=== PATIENT | female | born 1980 | race Two or more races ===

== ENCOUNTER 2018-02-08 16:58 | Emergency (ER) | payer OTHER ==
[~2018-02-08] VITALS: Ht 165.1 cm; Wt 68.0 kg
[~2018-02-08 16:58] MED LIST: AMOX1TAB12 PO; ANAPROX275 MG; DEMEBORO OTIC DROPS OTIC; FIORICET 50-321 EACH; FOLIC ACID1 MG; GILTUSS TR TAB1 EACH PO; NAPR500T14 PO; ZITHROMAX TRI-500 MG PO; ZYRTEC10 MG PO
== END 2018-02-08 18:05 | disposition home or self-care (01) ==
LOC: ER 16:58
DX: S61.431A Puncture wound without foreign body of right hand, initial encounter (principal); W46.0XXA Contact with hypodermic needle, initial encounter; Y93.89 Activity, other specified; Y92.69 Other specified industrial and construction area as the place of occurrence of the external cause; Y99.8 Other external cause status

== ENCOUNTER 2018-05-20 15:26 | Outpatient (CLI) | payer OTHER | END 2018-05-20 15:51 | disposition home or self-care (01) | LOC: LAB 15:26 | DX: J11.1 Influenza due to unidentified influenza virus with other respiratory manifestations (principal); J06.9 Acute upper respiratory infection, unspecified ==

== ENCOUNTER 2018-06-08 09:55 | Outpatient (CLI) | payer OTHER | END 2018-06-08 09:59 | disposition home or self-care (01) | LOC: LAB 09:55 | DX: Z11.3 Encounter for screening for infections with a predominantly sexual mode of transmission (principal) ==

== ENCOUNTER 2018-07-12 17:13 | Emergency (ER) | payer OTHER ==
[~2018-07-12] VITALS: Ht 165.1 cm; Wt 63.5 kg
== END 2018-07-12 20:43 | disposition home or self-care (01) ==
LOC: ER 17:13
DX: M62.838 Other muscle spasm (principal); R51 Headache

== ENCOUNTER 2018-09-06 08:37 | Outpatient (CLI) | payer OTHER | END 2018-09-06 08:41 | disposition home or self-care (01) | LOC: LAB 08:37 | DX: E78.49 Other hyperlipidemia (principal); R42 Dizziness and giddiness; R10.2 Pelvic and perineal pain; Z00.00 Encounter for general adult medical examination without abnormal findings ==

== ENCOUNTER → 2019-03-06 14:53 | Outpatient (CLI) | payer OTHER | END | disposition home or self-care (01) | LOC: LAB 14:53 | DX: B01.0 Varicella meningitis (principal); B34.8 Other viral infections of unspecified site ==

== ENCOUNTER 2019-07-04 17:53 | Outpatient (CLI) | payer OTHER | END 2019-07-04 18:00 | disposition home or self-care (01) | LOC: LAB 17:53 | DX: J11.1 Influenza due to unidentified influenza virus with other respiratory manifestations (principal) ==

== ENCOUNTER 2020-01-19 09:00 | Outpatient (CLI) | payer OTHER | END 2020-01-19 18:00 | disposition home or self-care (01) | LOC: PPH VACUNA 09:00 | DX: Z23 Encounter for immunization (principal) ==

== ENCOUNTER → 2020-03-22 06:29 | Outpatient (CLI) | payer OTHER | END | disposition home or self-care (01) | LOC: LAB 06:29 | PROVIDERS: ATTEND Podiatrist Foot Surgery | DX: D68.8 Other specified coagulation defects (principal); D23.70 Other benign neoplasm of skin of unspecified lower limb, including hip ==

== ENCOUNTER 2020-04-09 16:10 | Outpatient (CLI) | payer OTHER | END 2020-04-09 19:00 | disposition home or self-care (01) | LOC: LAB 16:10 | PROVIDERS: ATTEND Podiatrist Foot Surgery | DX: Z03.818 Encounter for observation for suspected exposure to other biological agents ruled out (principal) ==

== ENCOUNTER 2020-04-30 15:56 | Outpatient (CLI) | payer OTHER | END 2020-04-30 15:58 | disposition home or self-care (01) | LOC: LAB 15:56 | PROVIDERS: ATTEND Pediatrics | DX: Z01.84 Encounter for antibody response examination (principal); R50.9 Fever, unspecified ==

== ENCOUNTER 2020-07-17 10:54 | Outpatient (CLI) | payer OTHER | END 2020-07-17 10:59 | disposition home or self-care (01) | LOC: LAB 10:54 | PROVIDERS: ATTEND Obstetrics & Gynecology Gynecology | DX: N95.2 Postmenopausal atrophic vaginitis (principal); E03.8 Other specified hypothyroidism; E55.9 Vitamin D deficiency, unspecified; R73.9 Hyperglycemia, unspecified; E78.89 Other lipoprotein metabolism disorders; D64.89 Other specified anemias; N39.0 Urinary tract infection, site not specified; R19.09 Other intra-abdominal and pelvic swelling, mass and lump; R97.8 Other abnormal tumor markers ==

== ENCOUNTER 2020-07-25 07:39 | Outpatient (CLI) | payer OTHER | END 2020-07-25 07:40 | disposition home or self-care (01) | LOC: TOM 07:39 | PROVIDERS: ATTEND Obstetrics & Gynecology Gynecology | DX: K57.30 Diverticulosis of large intestine without perforation or abscess without bleeding (principal); N20.0 Calculus of kidney; N80.3 Endometriosis of pelvic peritoneum ==

== ENCOUNTER 2021-01-28 08:00 | Outpatient (CLI) | payer OTHER | END 2021-01-28 08:30 | disposition home or self-care (01) | LOC: PPH VACUNA 08:00 | PROVIDERS: ATTEND Emergency Medicine Pediatric Emergency Medicine | DX: Z23 Encounter for immunization (principal) ==

== ENCOUNTER 2021-05-26 10:00 | Outpatient (CLI) | payer OTHER | END 2021-05-26 10:30 | disposition home or self-care (01) | LOC: PPH VACUNA 10:00 | PROVIDERS: ATTEND Emergency Medicine Pediatric Emergency Medicine | DX: Z23 Encounter for immunization (principal) ==

== ENCOUNTER 2021-07-13 12:20 | Emergency (ER) | payer OTHER ==
[~2021-07-13] VITALS: Ht 165.1 cm; Wt 70.3 kg
== END 2021-07-13 15:32 | disposition home or self-care (01) ==
LOC: ER 12:20
DX: S61.247A Puncture wound with foreign body of left little finger without damage to nail, initial encounter (principal); Y93.F9 Activity, other caregiving; Y92.238 Other place in hospital as the place of occurrence of the external cause

== ENCOUNTER 2021-11-11 09:08 | Outpatient (CLI) | payer OTHER | END 2021-11-11 09:10 | disposition home or self-care (01) | LOC: MAMO-SONO 09:08 | PROVIDERS: ATTEND Obstetrics & Gynecology Gynecology | DX: Z12.31 Encounter for screening mammogram for malignant neoplasm of breast (principal); N64.4 Mastodynia ==

== ENCOUNTER 2021-11-11 11:24 | Outpatient (CLI) | payer OTHER | END 2021-11-11 11:25 | disposition home or self-care (01) | LOC: LAB 11:24 | PROVIDERS: ATTEND Obstetrics & Gynecology Gynecology | DX: N95.2 Postmenopausal atrophic vaginitis (principal); E03.9 Hypothyroidism, unspecified; E55.9 Vitamin D deficiency, unspecified; R73.9 Hyperglycemia, unspecified; E78.9 Disorder of lipoprotein metabolism, unspecified; D64.9 Anemia, unspecified; N39.0 Urinary tract infection, site not specified; R19.09 Other intra-abdominal and pelvic swelling, mass and lump ==

== ENCOUNTER 2022-02-06 14:34 | Outpatient (CLI) | payer OTHER | END 2022-02-06 14:35 | disposition home or self-care (01) | LOC: PPH VACUNA 14:34 | PROVIDERS: ATTEND Emergency Medicine Pediatric Emergency Medicine | DX: Z23 Encounter for immunization (principal) ==

== ENCOUNTER 2022-05-20 15:35 | Emergency (ER) | payer OTHER ==
[~2022-05-20] VITALS: Ht 165.1 cm; Wt 71.2 kg
== END 2022-05-20 16:39 | disposition home or self-care (01) ==
LOC: ER 15:35
DX: S69.91XA Unspecified injury of right wrist, hand and finger(s), initial encounter (principal); W45.8XXA Other foreign body or object entering through skin, initial encounter; Y93.F9 Activity, other caregiving; Y92.9 Unspecified place or not applicable

== ENCOUNTER 2022-05-21 16:04 | Outpatient (CLI) | payer OTHER | END 2022-05-21 16:06 | disposition home or self-care (01) | LOC: LAB 16:04 | PROVIDERS: ATTEND General Practice | DX: R05.9 Cough, unspecified (principal); R06.02 Shortness of breath; R50.9 Fever, unspecified; Z20.822 Contact with and (suspected) exposure to COVID-19 ==

== ENCOUNTER → 2022-08-08 09:13 | Outpatient (CLI) | payer OTHER | END | disposition home or self-care (01) | LOC: LAB 09:13 | PROVIDERS: ATTEND Obstetrics & Gynecology Gynecology | DX: N95.2 Postmenopausal atrophic vaginitis (principal); E03.9 Hypothyroidism, unspecified; E55.9 Vitamin D deficiency, unspecified; R73.9 Hyperglycemia, unspecified; E78.9 Disorder of lipoprotein metabolism, unspecified; D64.9 Anemia, unspecified; N39.0 Urinary tract infection, site not specified; R19.09 Other intra-abdominal and pelvic swelling, mass and lump; E28.9 Ovarian dysfunction, unspecified; E28.2 Polycystic ovarian syndrome ==

== ENCOUNTER → 2022-08-13 17:30 | Outpatient (CLI) | payer OTHER | END | disposition home or self-care (01) | LOC: LAB 17:30 | PROVIDERS: ATTEND Pediatrics | DX: Z32.01 Encounter for pregnancy test, result positive (principal) ==

== ENCOUNTER 2022-09-19 09:24 | Outpatient (CLI) | payer OTHER | END 2022-09-19 09:47 | disposition home or self-care (01) | LOC: LAB 09:24 | PROVIDERS: ATTEND Obstetrics & Gynecology Gynecology | DX: E28.2 Polycystic ovarian syndrome (principal); N95.2 Postmenopausal atrophic vaginitis; E03.9 Hypothyroidism, unspecified; E55.9 Vitamin D deficiency, unspecified; R73.9 Hyperglycemia, unspecified; E78.9 Disorder of lipoprotein metabolism, unspecified; D64.9 Anemia, unspecified; N39.9 Disorder of urinary system, unspecified; R19.09 Other intra-abdominal and pelvic swelling, mass and lump ==

== ENCOUNTER 2022-10-23 10:57 | Outpatient (CLI) | payer OTHER | END 2022-10-23 11:01 | disposition home or self-care (01) | LOC: LAB 10:57 | PROVIDERS: ATTEND Obstetrics & Gynecology Gynecology | DX: E28.2 Polycystic ovarian syndrome (principal) ==

== ENCOUNTER → 2022-11-30 12:24 | Outpatient (CLI) | payer OTHER | END | disposition home or self-care (01) | LOC: LAB 12:24 | PROVIDERS: ATTEND Obstetrics & Gynecology Gynecology | DX: N91.4 Secondary oligomenorrhea (principal) ==

== ENCOUNTER → 2022-12-31 | Outpatient (CLI) | payer OTHER | END | disposition home or self-care (01) | LOC: PPH VACUNA | PROVIDERS: ATTEND Emergency Medicine Pediatric Emergency Medicine | DX: Z23 Encounter for immunization (principal) | CPT/HCPCS: 90686; G0008 ==

== ENCOUNTER → 2023-01-06 06:00 | Outpatient (CLI) | payer OTHER | END | disposition home or self-care (01) | LOC: LAB 06:00 | PROVIDERS: ATTEND Obstetrics & Gynecology Gynecology | DX: N91.1 Secondary amenorrhea (principal) ==

== ENCOUNTER → 2023-02-05 16:09 | Outpatient (CLI) | payer OTHER | END | disposition home or self-care (01) | LOC: LAB 16:09 | PROVIDERS: ATTEND Pediatrics | DX: O02.81 Inappropriate change in quantitative human chorionic gonadotropin (hCG) in early pregnancy (principal) ==

== ENCOUNTER 2023-02-19 10:19 | Outpatient (CLI) | payer OTHER | END 2023-02-19 10:24 | disposition home or self-care (01) | LOC: LAB 10:19 | PROVIDERS: ATTEND Obstetrics & Gynecology Gynecology | DX: N91.1 Secondary amenorrhea (principal); Z88.2 Allergy status to sulfonamides; Z88.1 Allergy status to other antibiotic agents ==

== ENCOUNTER 2023-07-13 09:55 | Outpatient (CLI) | payer OTHER | END 2023-07-13 09:56 | disposition home or self-care (01) | LOC: LAB 09:55 | PROVIDERS: ATTEND Preventive Medicine Occupational Medicine | DX: U07.1 COVID-19 (principal) ==

== ENCOUNTER 2023-07-29 08:00 | Outpatient (CLI) | payer OTHER ==
[2023-07-29 09:33] LABS: HEMOGLOBIN 12.5 g/dL (12.0-15.00); MEAN CELL VOLUME 92.3 fL (80.00-100.00); MEAN CORPUSCULAR HGB CONC 34.6 g/dl (32.0-36.0); PLATELET COUNT 356 K/uL (150-450); RED CELL DISTRIBUTION WIDTH 13.5 % (11.5-14.5)
[2023-07-29 10:09] LABS: T4 TOTAL 9.87 UG/DL (4.8-13.9); TSH 2.26 uIU/mL (0.358-3.74)
== END 2023-07-29 08:01 | disposition home or self-care (01) ==
LOC: LAB 08:00
PROVIDERS: ATTEND Pediatrics Neonatal-Perinatal Medicine
DX: N92.0 Excessive and frequent menstruation with regular cycle (principal)

== ENCOUNTER 2023-11-18 15:02 | Outpatient (CLI) | payer OTHER ==
[2023-11-20 09:10] LABS: ESTRADIOL SERUM 9.5 pg/mL (.); FOLLICLE STIMULATING HORMONE 66.3 mIU/mL (.); LEUTEINIZING HORMONE 32.8 mIU/mL (.)
[2023-11-24 23:07] LABS: test free 0.2 pg/mL (0.0-4.2)
== END 2023-11-18 15:10 | disposition home or self-care (01) ==
LOC: LAB 15:02
PROVIDERS: ATTEND Pediatrics
DX: E34.9 Endocrine disorder, unspecified (principal)

== ENCOUNTER 2023-12-08 09:06 | Outpatient (CLI) | payer OTHER ==
[2023-12-08 10:12] LABS: HEMATOCRIT 33.6 % (36.0-45.00); MEAN CELL VOLUME 94.7 fL (80.00-100.00); MEAN CORPUSCULAR HGB CONC 35.1 g/dl (32.0-36.0); PLATELET COUNT 326 K/uL (150-450); RED BLOOD COUNT 3.54 M/uL (4.00-6.00); RED CELL DISTRIBUTION WIDTH 13.2 % (11.5-14.5)
[2023-12-08 10:13] LABS: HEMOGLOBIN 11.8 g/dL (12.0-15.00); MEAN CORPUSCULAR HEMOGLOBIN 33.3 pg (27.00-32.0)
[2023-12-08 10:32] LABS: PH,URINE 6.5 (5.0-8.0); URINE APPEARANCE Clear; URINE BILIRRUBIN Negative (NEGATIVE); URINE BLOOD Negative; URINE COLOR Yellow; URINE GLUCOSE Negative (NEGATIVE); URINE KETONE Negative (NEGATIVE); URINE LEUKOCYTE Negative; URINE NITRATE Negative; URINE PROTEIN Negative (NEGATIVE); URINE UROBILINOGEN 0.2 E.U./dl
[2023-12-08 10:35] LABS: URINE BACTERIA 143.6 uL (0.0-1933); URINE RBC 2.9 uL (0.0-20.8)
[2023-12-08 10:40] LABS: URINE CAST 0.15 uL (0.0-1.40)
[2023-12-08 11:10] LABS: ALBUMIN 3.9 gm/dL (3.4-5.0); BILIRUBIN TOTAL 0.42 mg/dL (0.3-1.2); CALCIUM 8.9 mg/dL (8.5-10.1); CHOL HDL RATIO 2.4 (0-5.0); CREATININE SERUM 0.65 mg/dL (0.55-1.02); FREE TRIODOTIRONINE 2.76 pg/ml (2.18-3.98); GFR 98.57; GLOBULINA 3.7 G/DL (2.4-3.5); POTASSIUM 4.21 mEq/L (3.5-5.1); T4 FREE 0.95 NG/ML (0.76-1.46); T4 TOTAL 8.31 UG/DL (4.8-13.9); TOTAL PROTEIN 7.6 gm/dL (6.4-8.2); TSH 1.79 uIU/mL (0.358-3.74)
[2023-12-08 12:39] LABS: RH NEGATIVE
[2023-12-08 12:52] LABS: VITAMIN D3 25 HYDROXY 33.21 ng/ml (30-120)
[2023-12-08 15:42] LABS: RAPID PLASMA REAGIN NONREACTIVE BY RPR (NONREACTIVE)
[2023-12-09 07:07] LABS: hav igm Negative (Negative); hcv Non Reactive (Non Reactive); hep b c Negative (Negative); hep b s ag Negative (Negative)
[2023-12-09 09:11] LABS: CA 125 26.4 U/mL (0.0-38.1); PROLACTIN 5.9 ng/mL (4.8-33.4)
[2023-12-14 01:05] LABS: ANTI MULLERIAN HORMONE < 0.015 ng/mL (.)
== END 2023-12-08 10:00 | disposition home or self-care (01) ==
LOC: LAB 09:06
DX: N95.2 Postmenopausal atrophic vaginitis (principal); E03.9 Hypothyroidism, unspecified; E55.9 Vitamin D deficiency, unspecified; R73.9 Hyperglycemia, unspecified; E78.9 Disorder of lipoprotein metabolism, unspecified; D64.9 Anemia, unspecified; N39.9 Disorder of urinary system, unspecified; R19.09 Other intra-abdominal and pelvic swelling, mass and lump; R97.8 Other abnormal tumor markers; R97.1 Elevated cancer antigen 125 [CA 125]; G89.3 Neoplasm related pain (acute) (chronic); Z11.3 Encounter for screening for infections with a predominantly sexual mode of transmission; B20 Human immunodeficiency virus [HIV] disease; B16.9 Acute hepatitis B without delta-agent and without hepatic coma

== ENCOUNTER 2023-12-21 16:29 | Outpatient (CLI) | payer OTHER | END 2023-12-21 16:38 | disposition home or self-care (01) | LOC: LAB 16:29 | PROVIDERS: ATTEND Preventive Medicine Occupational Medicine | DX: B19.10 Unspecified viral hepatitis B without hepatic coma (principal) ==

== ENCOUNTER 2024-02-01 16:35 | Outpatient (CLI) | payer OTHER | END 2024-02-01 16:42 | disposition home or self-care (01) | LOC: LAB 16:35 | DX: N94.6 Dysmenorrhea, unspecified (principal); E28.8 Other ovarian dysfunction ==

== ENCOUNTER 2024-02-04 10:04 | Outpatient (CLI) | payer OTHER | END 2024-02-04 10:12 | disposition home or self-care (01) | LOC: SONOGRAMA 10:04 | PROVIDERS: ATTEND Obstetrics & Gynecology Reproductive Endocrinology | DX: N94.6 Dysmenorrhea, unspecified (principal); N80.00 Endometriosis of the uterus, unspecified ==

== ENCOUNTER 2024-05-16 14:54 | Outpatient (CLI) | payer OTHER | END 2024-05-16 14:58 | disposition home or self-care (01) | LOC: LAB 14:54 | PROVIDERS: ATTEND General Practice | DX: Z11.3 Encounter for screening for infections with a predominantly sexual mode of transmission (principal); Z20.5 Contact with and (suspected) exposure to viral hepatitis ==

== ENCOUNTER 2024-05-22 17:25 | Outpatient (CLI) | payer OTHER | END 2024-05-22 17:28 | disposition home or self-care (01) | LOC: LAB 17:25 | PROVIDERS: ATTEND Pediatrics | DX: O02.81 Inappropriate change in quantitative human chorionic gonadotropin (hCG) in early pregnancy (principal) ==

== ENCOUNTER 2024-08-23 07:59 | Outpatient (CLI) | payer OTHER | END 2024-08-23 08:07 | disposition home or self-care (01) | LOC: TOM 07:59 | PROVIDERS: ATTEND Obstetrics & Gynecology Gynecology | DX: K57.30 Diverticulosis of large intestine without perforation or abscess without bleeding (principal); N20.0 Calculus of kidney ==

== ENCOUNTER → 2024-09-20 16:32 | Outpatient (CLI) | payer OTHER ==
[2024-09-22 07:11] LABS: FOLLICLE STIMULATING HORMONE 86.4 mIU/mL (.); PROGESTERONA < 0.1 ng/mL (.)
== END | disposition home or self-care (01) ==
LOC: LAB 16:32
PROVIDERS: ATTEND General Practice
DX: N91.1 Secondary amenorrhea (principal)

== ENCOUNTER 2025-02-20 13:00 | Outpatient (CLI) | payer OTHER | END 2025-02-20 13:10 | disposition home or self-care (01) | LOC: PPH VACUNA 13:00 | PROVIDERS: ATTEND Emergency Medicine Pediatric Emergency Medicine | DX: Z23 Encounter for immunization (principal) ==